=== PATIENT | female | born 1985 | race Caucasian/White ===

== ENCOUNTER 2023-12-12 21:49 | Emergency (ER) | payer OTHER ==
[~2023-12-12] VITALS: Ht 162.6 cm; Wt 84.4 kg
[2023-12-12 21:57] VITALS: BP_SYST 154; PULSE 76; RESP 20; TEMP 98; O2SAT 98
[2023-12-13] MEDS: cloNIDine HCL 0.1 MG TABLET PO ONE (00:05)
[2023-12-13 00:44] LABS: BILIRUBIN,URINE NEGATIVE (NEGATIVE); BLOOD, URINE NEGATIVE (NEGATIVE); CLARITY/URINE CLEAR (CLEAR); COLOR,URINE YELLOW (YELLOW); GLUCOSE,URINE NEGATIVE (NEGATIVE); KETONES,URINE NEGATIVE (NEGATIVE); LEUKOCYTE ESTERASE ,URINE TRACE (NEGATIVE); NITRITE, URINE POSITIVE (NEGATIVE); PROTEIN URINE NEGATIVE (NEGATIVE); UROBILINOGEN,URINE 0.2 (0.2-1.0)
[2023-12-13 01:14] LABS: BACTERIA,URINE RARE /HPF (None Seen); MUCUS,URINE 2+ /LPF (None Seen)
[2023-12-13 01:19] VITALS: BP_SYST 137; PULSE 74; RESP 18; O2SAT 98
[2023-12-13] MEDS ORDERED: CEPH250C PO (01:22)
[2023-12-13] MEDS ORDERED: cephALEXin 500 MG CAPSULE ONE (01:28)
[2023-12-13] MEDS: cephALEXin 500 MG CAPSULE PO ONE (01:40)
== END 2023-12-13 02:00 ==
LOC: SED 21:49
DX: I10 Essential (primary) hypertension (principal); N39.0 Urinary tract infection, site not specified; F17.200 Nicotine dependence, unspecified, uncomplicated; F14.91 Cocaine use, unspecified, in remission
CPT/HCPCS: 81000; 81001; 81015; 81025; 87086; 99283

== ENCOUNTER 2023-12-17 23:42 | Emergency (ER) | payer OTHER ==
[~2023-12-17] VITALS: Ht 162.6 cm; Wt 84.8 kg
[~2023-12-17 23:42] MED LIST: CEPH250C PO
[2023-12-17 23:48] VITALS: BP_SYST 157; PULSE 88; RESP 20; TEMP 98; O2SAT 98
[2023-12-18 01:13] LABS: COVID19 ANTIGEN SOFIA FIA NEGATIVE (NEGATIVE)
[2023-12-18 01:33] LABS: INFLUENZA TYPE A Negative (NEGATIVE); INFLUENZA TYPE B NEGATIVE (NEGATIVE)
[2023-12-18 02:34] LABS: BASOPHILS # (AUTO) 0.1 K/uL (0.0-0.2); BASOPHILS % (AUTO) 0.9 % (0.0-2.0); EOSINOPHILS # (AUTO) 0.5 K/uL (0.0-0.4); EOSINOPHILS % (AUTO) 4.6 % (0.0-4.0); HEMATOCRIT 35.7 % (36-48); LYMPHOCYTES # (AUTO) 2.4 K/uL (1.0-5.5); LYMPHOCYTES % (AUTO) 23.8 % (20.5-51.5); MEAN CORPUSCULAR HEMOGLOBIN 30 pg (27-31); MEAN CORPUSCULAR HGB CONC 34 % (32-36); MEAN CORPUSCULAR VOLUME 90 fL (79.0-98.0); MONOCYTES # (AUTO) 1.1 K/uL (0.0-1.0); MONOCYTES % (AUTO) 10.6 % (1.7-9.3); NEUTROPHILS % (AUTO) 60.1 % (40.0-70.0); PLATELET COUNT (AUTO) 238 K/uL (130-430); RED BLOOD CELL COUNT(AUTO) 3.97 MIL/uL (4.2-6.2); RED CELL DISTRIBUTION WIDTH 15.8 % (9.0-15.0); WHITE BLOOD COUNT (AUTO) 9.9 K/uL (4.8-10.8)
[2023-12-18 03:07] LABS: ANION GAP 11 (5-15); CALCIUM 8.8 mg/dL (8.4-11.0); CARBON DIOXIDE 28 mmol/L (23-29); CHLORIDE 102 mmol/L (98-107); CREATININE 0.51 mg/dL (0.55-1.30); GFR AFRICAN AMERICAN 175 mL/min (>90); GLUCOSE 90 mg/dL (74-106); POTASSIUM 3.4 mmol/L (3.5-5.1); SODIUM SERUM 141 mmol/L (136-145); UREA NITROGEN, BLOOD 9 mg/dL (8-21)
[2023-12-18 03:15] LABS: GFR NON AFRICAN-AMERICAN 144 mL/min (>90)
[2023-12-18 04:01] VITALS: BP_SYST 157; PULSE 88; RESP 20; TEMP 98; O2SAT 98
== END 2023-12-18 03:50 ==
LOC: SED 23:42
DX: F10.10 Alcohol abuse, uncomplicated (principal); I10 Essential (primary) hypertension; J06.9 Acute upper respiratory infection, unspecified; R07.89 Other chest pain; Z20.822 Contact with and (suspected) exposure to COVID-19; Z79.899 Other long term (current) drug therapy
CPT/HCPCS: 36415; 71045; 80048; 84484; 85025; 93005; 99285